=== PATIENT | male | born 1960 | race African-American/Black ===

== ENCOUNTER 2025-01-23 11:45 | Emergency (ER) | payer MEDICARE, OTHER, SELFPAY ==
[2025-01-23] VITALS (8 sets, daily range): BP systolic 150–203; BP diastolic 82–110; BMI 39.7
[2025-01-23 12:18] LABS: Hematocrit 43.4 % (39.0-52.0); Hemoglobin 13.5 g/dL (13.0-18.0); Mean Corp Hgb Conc. 31.1 g/dL (33.0-37.0); Mean Corpuscular Volume 81.3 fL (80.0-94.0); Nucleated Red Blood Cells % 0 % (-); Platelet Count 214 10^3/uL (130-400); Red Cell Dist. Width 14.4 % (11.5-14.5)
[2025-01-23 12:32] LABS: ALT (SGPT) 27 U/L (0-50); AST (SGOT) 20 U/L (17-59); Albumin 4.5 g/dl (3.5-5.0); Alkaline Phosphatase 53 U/L (38-126); Blood Urea Nitrogen 11 mg/dl (9-20); Calcium 9.4 mg/dl (8.4-10.2); Carbon Dioxide 27 mmol/L (22-30); Chloride 102 mmol/L (98-107); Glucose 169 mg/dl (70-99); Potassium 3.8 mmol/L (3.5-5.1); Sodium 139 mmol/L (135-145); Total Protein 7.8 g/dl (6.3-8.2); eGFR > 60.00
[2025-01-23 12:44] LABS: Troponin I < 0.012 ng/ml
--- NOTE | 2025-01-23 12:50 | ED.GENMED ---
History of Present Illness
General
Chief Complaint: Chest Pain
Source: patient
Exam Limitations: none
Time Seen by Provider: 01/23/25 12:40
History of Present Illness
History of Present Illness:
See MDM
Past History
Past History
ED Past Medical History: HTN and NIDDM
ED Past Surgical History: Cholecystectomy
Social History
Tobacco: Non-smoker
Alcohol: None
Drug: None
Personal: Single
Living: alone
Phy Exam
Physical Exam
Physical Exam:
See MDM
Scores
Heart Score for Chest Pain Patients
STEMI patient?: No
History: Slightly or Non-Suspicious
ECG: Normal
Age: >/= 65 years
Risk Factors: 1 or 2 Risk Factors
Troponin: </= Normal Limit
Heart Score for Chest Pain Patients: 3
Heart Score Risk: 2.5% MACE over next 6 weeks
Course
Orders/Labs/Results
Orders:
Orders
01/23/25 11:46
Electrocardiogram (*1) Urgent
Reason for Study: Chest Pain
EKG- Treatment ONCE
01/23/25 12:04
Complete Blood Count/With Diff Urgent
Comprehensive Metabolic Panel Urgent
Troponin I Urgent
01/23/25 12:49
Acetaminophen [Tylenol] 650 mg PO NOW STA
01/23/25 12:50
Amlodipine [Norvasc] 5 mg PO ONCE ONE
01/23/25 14:44
HydrALAZINE [Apresoline] 50 mg PO NOW STA
Abnormal Lab Results
01/23/25
12:04
WBC 10.9 H 10^3/uL
(4.8-10.8)
MCH 25.3 L pg
(27.0-31.0)
MCHC 31.1 L g/dL
(33.0-37.0)
MPV 11.0 H fL
(7.4-10.4)
Absolute Neuts (auto) 7.8 H 10^3/uL
(1.4-6.5)
Absolute Monos (auto) 0.9 H 10^3/uL
(0.1-0.6)
Lymphocytes % 19.1 L %
(20.5-51.1)
Glucose 169 H mg/dl
(70-99)
01/23/25 12:04
01/23/25 12:04
Vital Signs
Initial and Last Documented VS:
Initial Vital Signs
Pulse Resp BP Pulse Ox
94 16 203/106 98
01/23/25 11:46 01/23/25 11:46 01/23/25 11:46 01/23/25 11:46
Last Documented Vital Signs
Pulse Resp BP Pulse Ox
81 14 150/97 99
01/23/25 15:00 01/23/25 15:00 01/23/25 14:57 01/23/25 15:00
MDM/Problems Addressed
Differential Diagnosis Includes:
Note:
CHIEF COMPLAINT(S)
Chest pain and headache.
HISTORY OF PRESENT ILLNESS
The patient is a 64-year-old male with a history of hypertension. He reports experiencing chest pain and elevated blood pressure at home. He used his blood pressure monitor and noted inconsistent readings. The patients doctor suspected a malfunction
of the device, but the patient felt lightheaded and experienced a headache, which suggested to him that his blood pressure was high. He had already taken his antihypertensive medication, but there has been a recent change in dosage from 10 mg to 5
mg, which he feels has not been effective in controlling his blood pressure. His blood pressure had previously dropped to the teens, which prompted this adjustment. The patient is also experiencing pressure in his head affecting his vision. He
denies smoking, drinking, and drug use. He mentioned recent weight gain and a lifestyle change since retiring, attending many residential parties with unhealthy food options.
EXTERNAL RECORDS REVIEWED
The patients blood work and EKG were reviewed. Both returned normal.
CHRONIC MEDICAL CONDITIONS SIGNIFICANTLY AFFECTING CARE
Chronic conditions affecting care include hypertension.
SOCIAL DETERMINANTS OF HEALTH
The patient has reported attending frequent parties since residential, leading to weight gain and changes in lifestyle.
PHYSICAL EXAM
General: Alert, no acute distress.
Skin: Warm, dry.
Head: Normocephalic, atraumatic
Neck: Appears supple, trachea midline.
Eyes, Ears, Nose, Mouth, and Throat: Moist mucous membranes. Pupils equal and react
Cardiovascular: No signs of cyanosis. Regular rate and rhythm
Respiratory: Respirations are non-labored.
Abdomen: Non-distended
Musculoskeletal: No deformities
Neurological: No focal neurological deficit observed.
Psychiatric: Cooperative, appropriate mood and affect.
PLAN
Adjustment of blood pressure medication back to 10 mg and monitor symptoms.
DIFFERENTIAL DIAGNOSIS
The Differential Diagnosis includes, in no particular order and is not limited to:
- Hypertension
- Medication side effects
- Anxiety-related symptoms
- Headache
- Non-cardiac chest pain
- Sinusitis
- Migraine
- Vision disturbances
- Metabolic syndrome
- Dehydration
SUMMARY OF ENCOUNTER
The patient was seen in the emergency department for chest pain and headache, suspected to be related to suboptimal blood pressure control. EKG and blood tests showed normal results, ruling out acute coronary syndrome. The primary concern appears to
be uncontrolled hypertension due to recent medication adjustments.
DISPOSITION
The patient opted for adjustment of his antihypertensive medication with plans to monitor blood pressure and symptoms at home.
ASSESSMENT
Uncontrolled hypertension due to medication changes.
MEDICATION RECONCILIATION
Prescription was adjusted from 5 mg to 10 mg of the previously effective blood pressure medication.
MEDICAL DECISION MAKING
- Number and Complexity of Problems Addressed: Chronic conditions affecting care include hypertension.
- Data:
Category 1
- Non-emergency department records reviewed include EKG and blood work.
Category 2
- My independent interpretation of the EKG shows normal results.
- Risk:
Prescription medication was prescribed. Consideration of Admission/Observation: Escalation of care including admission/observation was considered due to presenting complaint and uncontrolled hypertension. However, ultimately I feel the patient is
safe for outpatient management with close follow-up. Reasoning includes normal EKG and blood work, symptoms well-controlled upon reevaluation, stable vitals, and patient is reliable for follow-up.
DIAGNOSIS
1. Uncontrolled Hypertension (I10)
2. Headache (R51)
3. Chest Pain, Non-cardiac (R07.89)
EKG
My independent EKG interpretation is:
- Rhythm: Sinus rhythm
- Heart rate: 91 beats per minute
- Notable intervals: First-degree AV block
- Occidental: Left axis deviation
- Abnormalities: No ST elevation
- Comparison: EKG appears unchanged from prior
SUMMARY OF ENCOUNTER
The patient, a 64-year-old male with a history of hypertension, presented to the emergency department with chest pain and a headache, potentially linked to inadequate blood pressure management following a recent medication adjustment. During his ED
stay, he reported lightheadedness and vision disturbances. Blood tests and an EKG returned normal, effectively excluding acute coronary syndrome. The decision was made to revert the antihypertensive medication dosage back to the previously effective
10 mg, to be monitored at home. The patient was managed conservatively with medication adjustments and patient education.
DISPOSITION
Discharge.
ASSESSMENT
Uncontrolled hypertension due to medication changes.
EMERGENCY TREATMENTS ADMINISTERED
The patient received an extra dose of amlodipine and a one-time dose of hydralazine.
PLAN
Adjust antihypertensive medication back to amlodipine 10 mg and monitor symptoms. Educate the patient on diet, exercise, and medication compliance.
INDEPENDENT REVIEW OF LABS AND INTERPRETATION OF TESTS
My independent EKG interpretation is normal with sinus rhythm, heart rate of 91 bpm, first-degree AV block, and left axis deviation without ST elevation.
PATIENT EDUCATION AND COUNSELING
The patient was counseled on the importance of diet, exercise, and compliance with his medication regimen to manage hypertension.
FOLLOW-UP INSTRUCTIONS
The patient is advised to call his doctor tomorrow for an expedited follow-up.
MEDICATION RECONCILIATION
Prescription was adjusted from 5 mg to 10 mg of amlodipine. A one-time dose of hydralazine was also administered.
MEDICAL DECISION MAKING
- Number and Complexity of Problems Addressed: Chronic conditions affecting care include hypertension. The differential diagnosis considered included hypertension, medication side effects, anxiety-related symptoms, headache, non-cardiac chest pain,
sinusitis, migraine, vision disturbances, metabolic syndrome, and dehydration.
- Data:
Category 1: Non-emergency department records were reviewed, including EKG and blood work.
Category 2: My independent interpretation of the EKG was conducted.
- Risk: Prescription medication was prescribed. Escalation of care, including admission/observation, was considered. However, based on the reassuring work-up and stable condition upon reevaluation, outpatient management with close follow-up was
deemed safe.
DIAGNOSIS
1. Uncontrolled Hypertension (I10)
2. Headache (R51)
3. Chest Pain, Non-cardiac (R07.89)
*Pulse Oximetry
SaO2: 100
Oxygen Mode of Delivery: Room air
Patient hypoxic: no
*Critical Care Note
Total Time (30-74mins, 75-104mins- exclusive of procedures): Not Applicable
ED Attending Note
-
Portions of this chart may have been created with voice recognition software.� Occasional wrong word or��sound alike� substitutions may have occurred due to the inherent limitations of voice recognition software.
Discharge Plan
Departure
Patient Disposition: Home (Routine Discharge)
Date of Disposition: 01/23/25
Time of Disposition: 15:39
Patient with high blood pressure during this ER visit?: Yes
Discharge Problem:
Chest pressure, Benign essential HTN
Instructions: Chest Pain PCP Follow Up, BLOOD PRESSURE
Prescriptions:
New
amlodipine 10 mg tablet
10 mg PO DAILY Qty: 30 0RF
olmesartan 20 mg tablet
20 mg PO DAILY Qty: 30 0RF
No Action
omeprazole 40 MG capsule,delayed release(DR/EC)
40 mg PO DAILY
aspirin 81 MG tablet,delayed release (DR/EC)
81 mg PO DAILY
montelukast 10 MG tablet
10 mg PO QPM
albuterol sulfate 1 PUFF HFA aerosol inhaler
2 puff inhalation R [id number] PRN (Reason: sob)
fluticasone propionate 1 SPRAY spray,suspension
1 spray intranasal DAILY
metformin 500 MG tablet extended release 24 hr
1,000 mg PO DAILY
Patient Comments:
04/07/2019 patient states that 'they gave it to me today'
olmesartan-hydrochlorothiazide [Benicar HCT] 1 EACH tablet
1 ea PO DAILY
testosterone [Axiron] 30 MG/1.5 ML solution in metered pump w/bernardo
30 mg TD SUTUWEFR
olmesartan 20 MG tablet
40 mg PO DAILY 0RF
Trulicity 0.75 mg/0.5 mL Pen Injector
0.75 mg SC QWEEK
amlodipine-olmesartan 5-20 mg Tablet
1 tab PO DAILY
Activity Restrictions/Additional Instructions:
Please return for any worsening symptoms.
You may return at any time if you have further concerns.
Please follow up with your doctor at the first available appointment, preferably this week.
Thank you for choosing [facility].
Interventions
Interventions:
*Risk Screen - Suicide Last Done: 01/23/25 11:46
*General Assessment Last Done: 01/23/25 12:44
*Neglect/Abuse Screening Last Done: 01/23/25 11:46
*ED- Fall Risk Assessment Last Done: 01/23/25 12:44
*ED COVID-19 Vaccine History Last Done: 01/23/25 12:44
*ED Influenza Vaccine History Last Done: 01/23/25 12:44
ED- Cardiac Assessment Last Done: 01/23/25 13:32
Discharge Date and Time
Print Language: ARMENIAN
[2025-01-23] MEDS: NORVASC 5 MG PO (12:55)
[2025-01-23] MEDS: TYLENOL 650 MG PO (12:56)
[2025-01-23] MEDS: APRESOLINE 50 MG PO (14:56)
== END 2025-01-23 15:48 | disposition home or self-care (01) ==
LOC: EMR 11:45
PROVIDERS: Emergency Medicine; EMERGENCY PHYSICIAN Student in an Organized Health Care Education/Training Program; FAMILY PHYSICIAN Nurse Practitioner Family
DX: R07.89 Other chest pain (principal); I10 Essential (primary) hypertension; E11.9 Type 2 diabetes mellitus without complications; I44.0 Atrioventricular block, first degree; Z90.49 Acquired absence of other specified parts of digestive tract
CPT/HCPCS: 99284; 80053; 84484; 85025; 93005